=== PATIENT | male | born 1955 | race Caucasian/White ===

== ENCOUNTER → 2019-04-10 06:00 | Outpatient (REF) | payer MEDICARE, MEDICAID, SELFPAY | LOC: ANHLAB 06:00 | PROVIDERS: PCP Internal Medicine; Visit Provider Nurse Practitioner Family | DX: C44.729 Squamous cell carcinoma of skin of left lower limb, including hip (principal) | CPT/HCPCS: 88305; 88331; 88332 ==

== ENCOUNTER 2019-05-28 00:28 | Day surgery (SDC) | payer MEDICARE, MEDICAID, SELFPAY ==
[2019-05-21 13:47] VITALS: BMI 25.7
--- NOTE | 2019-05-28 12:27 | SUR.PREOP ---
1220 PT RESTING ON STRETCHER. INFORMED OF SURGERY DELAY. ALSO MADE AWARE THAT DR. REVELES WILL SEE HIM PRIOR TO PREPARING FOR SURGERY. PT AND DENY NEEDS AT THIS TIME
--- NOTE | 2019-05-28 14:20 | WPDHPUPDATE1 ---
History and Physical Update Update Date/Time: 05/28/19 14:20 On review of pathology pathology shows clear margins. Wound is healing well. Will cancel surgery. Continue dressings. F/U in 2 weeks.
--- NOTE | 2019-05-28 14:28 | SUR.PREOP ---
1428 DR REVELES HERE TO SEE PT. SURGERY CANCELLED FOR TODAY.
== END 2019-05-28 14:28 | disposition home or self-care (01) ==
PROVIDERS: PCP Internal Medicine; Visit Provider Surgery Plastic and Reconstructive Surgery
DX: C44.729 Squamous cell carcinoma of skin of left lower limb, including hip (principal); Z53.8 Procedure and treatment not carried out for other reasons
CPT/HCPCS: 99211; G0463